=== PATIENT | female | born 1995 | race Caucasian/White ===

== ENCOUNTER → 2017-09-21 | Outpatient (CLI) | payer OTHER ==
[~2017-09-21] MED LIST: GADAVIST IV PRN
--- NOTE | 2017-09-21 13:20 | DIAGNOSTIC IMAGING REPORT ---
Study: MRI pelvis. HISTORY: Hip pain FINDINGS: Signal characteristics of all major osseous structures are unremarkable. There is no significant bone marrow replacing process. Trace amount of soft tissue edematous change adjacent to the greater trochanters. Mild trochanteric preciseness is considered. All remaining osseous structures are unremarkable. All major soft tissue structures are unremarkable. IMPRESSION: 1. Trace soft tissue edema adjacent to the greater trochanters bilaterally. 2. This is suggestive of mild trochanteric bursitis. 3. Study is otherwise negative. Electronically signed by: Jefferson Clemente M.D. 09/21/2017 1:18 PM Dictated Date/Time: 09/21/2017 1:05 PM
== END | disposition home or self-care (01) ==
LOC: C.MRI 10:42
PROVIDERS: ATTEND Family Medicine
DX: M25.559 Pain in unspecified hip (principal); G89.29 Other chronic pain; R26.89 Other abnormalities of gait and mobility